=== PATIENT | female | born 1955 | race Two or more races ===

== ENCOUNTER 2016-08-31 05:44 | Inpatient (IN) | payer MEDICAID ==
[~2016-08-31] VITALS: Ht 162.6 cm; Wt 73.1 kg
[2016-08-31] MEDS ORDERED: MORPHINE SULFATE 4 MG/ML SYRG IV ONE (06:15)
[2016-08-31] MEDS ORDERED: ONDANSETRON HCL 4 MG/2 ML VIAL IV ONE (06:15)
[2016-08-31] MEDS ORDERED: SODIUM CHLORIDE 0.9% 1,000 ML IV ONE ×3 (07:02→08:57)
[2016-08-31 07:05] LABS: Basophils # (auto) 0 uL; Eosinophils # (auto) 0 uL; Eosinophils % (auto) 0.1 % (0.0-7.0); Hematocrit 47.3 % (36.0-46.0); Hemoglobin 15.6 g/dL (12.2-16.2); Lymphocytes # (auto) 1.6 uL; Lymphocytes % (auto) 7.3 % (10.0-50.0); Mean Corpuscular Hemoglobin 29.1 pg (28.0-32.0); Mean Corpuscular Hgb Conc. 32.9 g/dL (32.0-36.0); Mean Corpuscular Volume 88.3 fL (80.0-100.0); Mean Platelet Volume 9.9 fL (7.4-10.4); Monocytes # (auto) 0.2 uL; Monocytes % (auto) 1.1 % (0.0-12.0); Neutrophils # (auto) 19.6 uL; Neutrophils % (auto) 91.5 % (37.0-80.0); Platelet Count (auto) 267 10^3/uL (140-450); Red Cell Distribution Width 13.8 % (11.6-16.0); White Blood Cell 21.4 10^3/uL (4.4-10.8)
[2016-08-31] MEDS ORDERED: DONNATAL 5ml ORAL Elix (BELLADONNA ALK-PHENOBARB) PO ONE (07:15)
[2016-08-31] MEDS ORDERED: ALUM & MAG HYDROX-SIMETH LIQ(MAALOX) 30 ML PO ONE (07:15)
[2016-08-31] MEDS ORDERED: LIDOCAINE VISCOUS 2% 15ML UD PO ONE (07:15)
[2016-08-31 07:44] LABS: Albumin 4.2 g/dL (3.4-5.0); BUN/Creatinine Ratio 12.6; Calcium 9.3 mg/dL (8.5-10.1); Total Protein 7.8 g/dL (6.4-8.2)
[2016-08-31 08:27] LABS: Amylase 2861 U/L (25-115)
[2016-08-31] MEDS ORDERED: SODIUM CHLORIDE 0.9% 250 ML IV ONE (08:57)
[2016-08-31] MEDS ORDERED: PIPERACILLIN-TAZOB 3.375GM 100 ML IV ONE (09:00)
[2016-08-31] MEDS ORDERED: metroNIDAZOLE 500MG/100ML 100 ML IV ONE (09:00)
[2016-08-31] MEDS ORDERED: InsuLIN REG 1unit/0.01ml Soln (100units/ml) IV ONE (09:00)
[2016-08-31] MEDS: POTASSIUM CHL 20MEQ/100ML 100 ML IV SCH ×3 (09:38→14:11)
[2016-08-31] MEDS ORDERED: ONDANSETRON HCL 4 MG/2 ML VIAL IV PRN (12:45)
[2016-08-31] MEDS ORDERED: ENALAPRILAT 1.25 MG/ML-1ML VIAL IV PRN (12:45)
[2016-08-31] MEDS ORDERED: HYDROcodone-ACET 5/325MG TAB PO PRN (12:45)
[2016-08-31 13:39] VITALS: BP 156/84
[2016-08-31] MEDS: SODIUM CHLORIDE 0.9% 1,000 ML IV SCH ×2 (13:45→22:01)
[2016-08-31] MEDS: cefTRIAXone 1GM/50ML D5W 50 ML IV SCH (14:11)
[2016-08-31] MEDS: PANTOPRAZOLE SODIUM 40 MG/10 ML VIAL IV SCH (14:11)
[2016-08-31] MEDS: metroNIDAZOLE 500MG/100ML 100 ML IV SCH ×2 (16:15→22:00)
[2016-08-31 22:27] VITALS: BP 145/70
[2016-09-01] MEDS: SODIUM CHLORIDE 0.9% 1,000 ML IV SCH ×3 (04:52→21:38)
[2016-09-01 05:30] VITALS: BP 130/63
[2016-09-01] MEDS: metroNIDAZOLE 500MG/100ML 100 ML IV SCH ×3 (05:33→21:57)
[2016-09-01 05:59] LABS: Basophils # (auto) 0 uL; Basophils % (auto) 0.3 % (0.0-2.0); Eosinophils # (auto) 0.1 uL; Eosinophils % (auto) 0.8 % (0.0-7.0); Hematocrit 36.4 % (36.0-46.0); Lymphocytes # (auto) 1.5 uL; Lymphocytes % (auto) 17.1 % (10.0-50.0); Mean Corpuscular Hemoglobin 28.9 pg (28.0-32.0); Mean Corpuscular Hgb Conc. 32.9 g/dL (32.0-36.0); Mean Corpuscular Volume 87.8 fL (80.0-100.0); Mean Platelet Volume 9.4 fL (7.4-10.4); Monocytes # (auto) 0.4 uL; Monocytes % (auto) 4.4 % (0.0-12.0); Neutrophils # (auto) 6.9 uL; Neutrophils % (auto) 77.4 % (37.0-80.0); Platelet Count (auto) 197 10^3/uL (140-450); Red Cell Distribution Width 14.3 % (11.6-16.0); White Blood Cell 8.9 10^3/uL (4.4-10.8)
[2016-09-01 06:00] LABS: INR 1.13 (0.9-1.15); Partial Thromboplastin Time 24.7 sec (22.64-33.71); Prothrombin Time 11.6 sec (9.37-12.3)
[2016-09-01 06:20] LABS: Albumin 2.8 g/dL (3.4-5.0); Potassium 3.3 mmol/L (3.5-5.1)
[2016-09-01 06:22] LABS: BUN/Creatinine Ratio 11.7; Bilirubin, Total 1.1 mg/dL (0.2-1.0); Calcium 7.9 mg/dL (8.5-10.1); Total Protein 5.8 g/dL (6.4-8.2)
[2016-09-01 06:55] LABS: Urine Bilirubin Negative (Negative); Urine Blood Negative /uL (Negative); Urine Color Yellow (Yellow); Urine Glucose Normal (Normal); Urine Mucus FEW (None Seen); Urine Nitrite Negative (Negative); Urine RBC 1 /hpf (0 - 4); Urine Squamous Epithelial Cell FEW /hpf (<5); Urine Urobilinogen Normal (Negative); Urine pH 5.5 (5.0-8.0)
[2016-09-01 07:05] LABS: Urine Ketone 1+ (Negative)
[2016-09-01 09:00] VITALS: BP 112/71
[2016-09-01] MEDS: cefTRIAXone 1GM/50ML D5W 50 ML IV SCH (09:00)
[2016-09-01] MEDS: PANTOPRAZOLE SODIUM 40 MG/10 ML VIAL IV SCH (10:00)
[2016-09-01 13:00] VITALS: BP 157/96
[2016-09-01] MEDS ORDERED: LISI40TA PO (13:28)
[2016-09-01 17:12] VITALS: BP 148/95
[2016-09-01 22:25] VITALS: BP 156/88
[2016-09-02] MEDS: MORPHINE SULF INJ 2 MG/ML SYRINGE 1ML IV PRN ×3 (01:26→21:08)
[2016-09-02 05:15] VITALS: BP 135/75
[2016-09-02] MEDS: SODIUM CHLORIDE 0.9% 1,000 ML IV SCH ×3 (06:02→21:28)
[2016-09-02] MEDS: metroNIDAZOLE 500MG/100ML 100 ML IV SCH ×3 (06:02→21:31)
[2016-09-02 06:41] LABS: Basophils # (auto) 0 uL; Basophils % (auto) 0.5 % (0.0-2.0); Eosinophils # (auto) 0.1 uL; Eosinophils % (auto) 1.4 % (0.0-7.0); Hematocrit 36.3 % (36.0-46.0); Hemoglobin 12.1 g/dL (12.2-16.2); Lymphocytes # (auto) 1.5 uL; Lymphocytes % (auto) 17.1 % (10.0-50.0); Mean Corpuscular Hemoglobin 29.4 pg (28.0-32.0); Mean Corpuscular Hgb Conc. 33.4 g/dL (32.0-36.0); Mean Corpuscular Volume 88.1 fL (80.0-100.0); Mean Platelet Volume 9.1 fL (7.4-10.4); Monocytes # (auto) 0.4 uL; Monocytes % (auto) 4.6 % (0.0-12.0); Neutrophils # (auto) 6.6 uL; Neutrophils % (auto) 76.4 % (37.0-80.0); Platelet Count (auto) 171 10^3/uL (140-450); Red Cell Distribution Width 12.8 % (11.6-16.0); White Blood Cell 8.6 10^3/uL (4.4-10.8)
[2016-09-02 07:21] LABS: BUN/Creatinine Ratio 21.9; Bilirubin, Total 0.6 mg/dL (0.2-1.0); Calcium 7.9 mg/dL (8.5-10.1); Potassium 3.3 mmol/L (3.5-5.1); Total Protein 5.9 g/dL (6.4-8.2)
[2016-09-02 09:00] VITALS: BP 164/81
[2016-09-02] MEDS: PANTOPRAZOLE SODIUM 40 MG/10 ML VIAL IV SCH (10:25)
[2016-09-02] MEDS: cefTRIAXone 1GM/50ML D5W 50 ML IV SCH (10:25)
[2016-09-02 13:00] VITALS: BP 161/88
[2016-09-02 16:56] VITALS: BP 130/63
[2016-09-02 22:00] VITALS: BP 150/89
[2016-09-03] MEDS: SODIUM CHLORIDE 0.9% 1,000 ML IV SCH ×3 (04:42→20:45)
[2016-09-03 05:00] VITALS: BP 150/93
[2016-09-03] MEDS: metroNIDAZOLE 500MG/100ML 100 ML IV SCH ×3 (06:18→22:00)
[2016-09-03 06:31] LABS: Potassium 3.3 mmol/L (3.5-5.1)
[2016-09-03 06:39] LABS: Albumin 2.7 g/dL (3.4-5.0); BUN/Creatinine Ratio 25.4; Calcium 7.8 mg/dL (8.5-10.1)
[2016-09-03 06:44] LABS: Basophils # (auto) 0 uL; Basophils % (auto) 0.3 % (0.0-2.0); Eosinophils # (auto) 0.1 uL; Hematocrit 35.2 % (36.0-46.0); Hemoglobin 11.5 g/dL (12.2-16.2); Lymphocytes # (auto) 1.2 uL; Lymphocytes % (auto) 17.4 % (10.0-50.0); Mean Corpuscular Hemoglobin 28.5 pg (28.0-32.0); Mean Corpuscular Hgb Conc. 32.5 g/dL (32.0-36.0); Mean Corpuscular Volume 87.8 fL (80.0-100.0); Mean Platelet Volume 9.5 fL (7.4-10.4); Monocytes # (auto) 0.4 uL; Monocytes % (auto) 5.2 % (0.0-12.0); Neutrophils # (auto) 5.3 uL; Neutrophils % (auto) 76.1 % (37.0-80.0); Platelet Count (auto) 188 10^3/uL (140-450)
[2016-09-03 06:50] LABS: Bilirubin, Total 0.5 mg/dL (0.2-1.0); Total Protein 5.7 g/dL (6.4-8.2)
[2016-09-03 07:30] VITALS: BP 159/80
[2016-09-03 08:00] VITALS: BP 159/80
[2016-09-03] MEDS: cefTRIAXone 1GM/50ML D5W 50 ML IV SCH (09:12)
[2016-09-03] MEDS: PANTOPRAZOLE SODIUM 40 MG/10 ML VIAL IV SCH (09:12)
[2016-09-03 12:11] VITALS: BP 187/99
[2016-09-03] MEDS ORDERED: cloNIDine HCL 0.1 MG TAB PO PRN (15:00)
[2016-09-03] MEDS ORDERED: MEPERIDINE HCL (50 MG/ML) 1 ML VIAL ONE (15:13)
[2016-09-03] MEDS ORDERED: fentaNYL CITRATE 100 MCG/2 ML VL ONE (15:13)
[2016-09-03] MEDS ORDERED: PROPOFOL 10 MG/ML 20 ML IV ONE (15:13)
[2016-09-03] MEDS ORDERED: MIDAZOLAM HCL 1MG/1ML-2 ML VIAL ONE (15:13)
[2016-09-03] MEDS ORDERED: DEXAMETHASONE SOD PHOS 10MG/1ML VIAL INJ ONE (15:13)
[2016-09-03] MEDS ORDERED: BUPIVACAINE 0.25% INJ 50ML VIAL ONE (15:18)
[2016-09-03] MEDS ORDERED: GLYCOPYRROLATE 0.2 MG/ML 1ML VIAL ONE (16:07)
[2016-09-03] MEDS ORDERED: NEOSTIGMINE 1 MG/ML INJ (10mg/10ML VIAL) ONE (16:07)
[2016-09-03] MEDS ORDERED: KETOROLAC TROMETH 30 MG/ML 1ML VIAL ONE (16:55)
[2016-09-03] MEDS ORDERED: LABETALOL HCL 5 MG/ML 4ML SYRINGE IV ONE (16:57)
[2016-09-03] MEDS ORDERED: ONDANSETRON HCL 4 MG/2 ML VIAL IV ONE (17:00)
[2016-09-03] MEDS ORDERED: MORPHINE SULF INJ 2 MG/ML SYRINGE 1ML IV PRN (17:00)
[2016-09-03] MEDS ORDERED: ePHEDrine SULFATE 50 MG/ML AMP IV PRN (17:00)
[2016-09-03] MEDS ORDERED: MIDAZOLAM HCL 1MG/1ML-2 ML VIAL IV PRN (17:00)
[2016-09-03] MEDS ORDERED: KETOROLAC TROMETH 30 MG/ML 1ML VIAL IV ONE (17:00)
[2016-09-03] MEDS ORDERED: LABETALOL HCL 5 MG/ML 4ML SYRINGE IV PRN (17:00)
[2016-09-03] MEDS ORDERED: hydrALAZINE HCL 20 MG/ML VL IV PRN (17:00)
[2016-09-03] MEDS: LABETALOL HCL 5 MG/ML 4ML SYRINGE IV PRN ×2 (17:08→17:17)
[2016-09-03] MEDS: HYDROmorphone HCL 2 MG/ML VL IV PRN ×2 (17:15→17:25)
[2016-09-03 22:01] VITALS: BP 134/79
[2016-09-04] VITALS (7 sets, daily range): BP systolic 116–201; BP diastolic 63–100
[2016-09-04] MEDS: MORPHINE SULF INJ 2 MG/ML SYRINGE 1ML IV PRN (01:17)
[2016-09-04] MEDS: SODIUM CHLORIDE 0.9% 1,000 ML IV SCH ×3 (04:26→21:17)
[2016-09-04] MEDS: metroNIDAZOLE 500MG/100ML 100 ML IV SCH (06:06)
[2016-09-04] MEDS: cefTRIAXone 1GM/50ML D5W 50 ML IV SCH (10:00)
[2016-09-04] MEDS: PANTOPRAZOLE SODIUM 40 MG/10 ML VIAL IV SCH (10:00)
[2016-09-04] MEDS ORDERED: LISINOPRIL 20 MG TAB PO ONE (17:45)
[2016-09-05 05:00] VITALS: BP 132/69
[2016-09-05] MEDS: SODIUM CHLORIDE 0.9% 1,000 ML IV SCH ×3 (05:17→20:45)
[2016-09-05 09:00] VITALS: BP 129/71
[2016-09-05] MEDS: cefTRIAXone 1GM/50ML D5W 50 ML IV SCH (10:32)
[2016-09-05] MEDS: PANTOPRAZOLE SODIUM 40 MG/10 ML VIAL IV SCH (10:33)
[2016-09-05] MEDS: LISINOPRIL 20 MG TAB PO SCH (10:33)
[2016-09-05 12:12] LABS: Albumin 3.4 g/dL (3.4-5.0); BUN/Creatinine Ratio 15.9; Bilirubin, Total 0.5 mg/dL (0.2-1.0); Potassium 3.2 mmol/L (3.5-5.1); Total Protein 6.3 g/dL (6.4-8.2)
[2016-09-05 12:55] LABS: Basophils # (auto) 0 uL; Basophils % (auto) 0.2 % (0.0-2.0); Eosinophils # (auto) 0.1 uL; Eosinophils % (auto) 1.3 % (0.0-7.0); Hematocrit 36.9 % (36.0-46.0); Hemoglobin 11.8 g/dL (12.2-16.2); Lymphocytes # (auto) 1.6 uL; Lymphocytes % (auto) 17.3 % (10.0-50.0); Mean Corpuscular Hemoglobin 28.3 pg (28.0-32.0); Mean Corpuscular Volume 88.5 fL (80.0-100.0); Mean Platelet Volume 9.9 fL (7.4-10.4); Monocytes # (auto) 0.5 uL; Monocytes % (auto) 4.9 % (0.0-12.0); Neutrophils # (auto) 7.2 uL; Neutrophils % (auto) 76.3 % (37.0-80.0); Platelet Count (auto) 245 10^3/uL (140-450); Red Cell Distribution Width 14.8 % (11.6-16.0); White Blood Cell 9.5 10^3/uL (4.4-10.8)
[2016-09-05 13:00] VITALS: BP 160/82
[2016-09-05 17:00] VITALS: BP 142/67
[2016-09-05 22:18] VITALS: BP 141/77
[2016-09-06 04:48] VITALS: BP 150/86
[2016-09-06] MEDS: SODIUM CHLORIDE 0.9% 1,000 ML IV SCH (04:51)
[2016-09-06 06:38] VITALS: BP 150/86
[2016-09-06] MEDS: cefTRIAXone 1GM/50ML D5W 50 ML IV SCH (08:18)
[2016-09-06 09:00] VITALS: BP 151/86
[2016-09-06] MEDS: PANTOPRAZOLE SODIUM 40 MG/10 ML VIAL IV SCH (09:25)
[2016-09-06] MEDS: LISINOPRIL 20 MG TAB PO SCH (09:26)
== END 2016-09-06 10:22 | disposition home or self-care (01) | DRG 263 ==
LOC: EDBD 05:44 → ER 05:46 → OVERFLOW 05:47 → EAST 13:26
PROVIDERS: ADMIT Internal Medicine; ATTEND Internal Medicine
PROC: 0FN Hepatobiliary System and Pancreas, Release (ICD-10-PCS; 2016-09-03)
PROC: 0FT44ZZ Resection of Gallbladder, Percutaneous Endoscopic Approach (ICD-10-PCS; principal; 2016-09-03 15:02)
DX: K80.00 Calculus of gallbladder with acute cholecystitis without obstruction (principal); K85.90 Acute pancreatitis without necrosis or infection, unspecified; N19 Unspecified kidney failure; I10 Essential (primary) hypertension; K82.8 Other specified diseases of gallbladder
CPT/HCPCS: 36415; 71010; 74176; 74181; 76705; 80053; 81001; 82150; 82962; 83036; 83605; 83690; 85025; 85049; 85610; 85730; 87040; 93005; 94761; 96361; 96374; 96375; C9113; J0696; J1100; J1815; J1885; J2250; J2405; J2543; J2704; J3480; J3490